=== PATIENT | female | born 1955 ===

== ENCOUNTER 2016-12-13 06:52 | Day surgery (SDC) | payer OTHER ==
[2016-12-13] MEDS ORDERED: Lactated Ringer's 500 ML IV ONE (08:13)
[2016-12-13] MEDS ORDERED: Propofol 10 mg/ml Inj (20 ML) ONE (08:21)
[2016-12-13 09:09] VITALS: TEMP 97.7; O2SAT 100
[2016-12-13 09:46] VITALS: BP 115/63; PULSE 68; RESP 19
== END 2016-12-13 09:44 | disposition home or self-care (01) ==
LOC: C.ENDO 06:52
PROVIDERS: ATTEND Internal Medicine
DX: Z12.11 Encounter for screening for malignant neoplasm of colon (principal); D12.5 Benign neoplasm of sigmoid colon; K64.8 Other hemorrhoids; K59.00 Constipation, unspecified; Z86.010 Personal history of colon polyps; C91.10 Chronic lymphocytic leukemia of B-cell type not having achieved remission; Z98.890 Other specified postprocedural states